=== PATIENT | female | born 1950 | race African-American/Black ===

== ENCOUNTER 2016-05-22 06:38 | Outpatient (CLI) | payer MEDICARE, OTHER ==
[2016-05-22 07:30] LABS: #Basophils 0.1 thou/uL (0.0-0.2); #Eosinphils 0.3 thou/uL (0.0-0.7); #Lymphocytes 1.3 thou/uL (1.20-3.40); #Monocytes 0.6 thou/uL (0.11-0.59); #Neutrophils 1.9 thou/uL (1.40-6.50); %Basophils 2.8 % (0.0-1.0); %Eosinophils 6.3 % (0.0-10.0); %Lymphocytes 31.7 % (21.0-51.0); %Monocytes 13.4 % (0.0-10.0); %Neutrophils 45.9 % (42.0-75.0); Hemoglobin 10.7 g/dL (12.0-16.0); Mean Corpuscular HGB CONC 32.4 g/dL (32.0-36.0); Mean Corpuscular Hemoglobin 28.4 pg (27.0-31.0); Mean Corpuscular Volume 87.9 fl (81.0-99.0); Mean Platelet Volume 7.8 fL (7.4-10.4); Platelet Count 220 thou/uL (130-400); RBC Distribution Width 14.3 % (11.5-14.5); Red Blood Cell (RBC) Count 3.78 mill/uL (4.20-5.40); White Blood Cell (WBC) Count 4.2 thou/uL (4.8-10.8)
[2016-05-22 07:34] LABS: Hemoglobin A1c 7.3 % (4.0-6.0)
[2016-05-22 07:44] LABS: ALT (SGPT) 26 U/L (0-55); AST (SGOT) 36 U/L (5-34); Albumin 3.9 g/dL (3.4-4.8); Alkaline Phosphatase 129 U/L (40-150); Anion Gap 14 mmol/L (10-20); BUN (Urea Nitrogen) 18 mg/dL (9.8-20.1); Bilirubin, Total Less than 0.3 mg/dL (0.2-1.2); Calc. Creatinine Clearance 0 mL/min (70-130); Calcium 8.9 mg/dL (7.8-10.44); Carbon Dioxide 26 mmol/L (23-31); Cardiac Risk 3.8 (Less than 4.5); Chloride 102 mmol/L (98-107); Cholesterol 156 mg/dL (< 200 Desired); Estimated GFR-MDRD 84; Globulin 3.4 g/dL (2.4-3.5); Glucose 74 mg/dL (80-115); HDL Cholesterol 41 mg/dL (>60 Neg Risk); LDL Cholesterol, Calculated 79 mg/dL; Potassium 3.9 mmol/L (3.5-5.1); Protein, Total 7.3 g/dL (5.8-8.1); Sodium 138 mmol/L (136-145); Triglycerides 180 mg/dL (Less than 150)
[2016-05-22 18:13] LABS: Iron 25 ug/dL (50-170); Iron Binding Capacity, Total 295 mcg/dL (265-497)
[2016-05-22 18:39] LABS: Creatinine, Urine 268.51 mg/dL (47-110); Microalbumin Urine 2.3 mg/dL (0.5-50.0); Microalbumin/Creat Ratio 8.6 mg/g (Less than 30)
== END 2016-05-22 06:39 | disposition home or self-care (01) ==
LOC: MADLAB 06:38
PROVIDERS: ATTEND Family Medicine
DX: E78.2 Mixed hyperlipidemia (principal); D50.9 Iron deficiency anemia, unspecified; E11.9 Type 2 diabetes mellitus without complications
CPT/HCPCS: 36415; 80053; 80061; 82043; 82728; 83036; 83540; 83550; 85025

== ENCOUNTER 2016-09-24 06:49 | Outpatient (CLI) | payer MEDICARE ==
[2016-09-24 07:45] LABS: Hemoglobin A1c 7.5 % (4.0-6.0)
[2016-09-24 08:26] LABS: Hemoglobin 11.3 g/dL (12.0-16.0); Lymphocytes 42 % (21-51); MDiff Complete? YES; Manual Diff?? YES; Mean Corpuscular HGB CONC 30.7 g/dL (32.0-36.0); Mean Corpuscular Volume 91.5 fL (81.0-99.0); Mean Platelet Volume 9.1 fL (7.4-10.4); Monocytes 10 % (0-10); Neutrophil 42 % (42-75); Platelet Count 190 thou/uL (130-400); RBC Distribution Width 13.6 % (11.5-14.5); Red Blood Cell (RBC) Count 4.04 mill/uL (4.20-5.40); White Blood Cell (WBC) Count 4.6 thou/uL (4.8-10.8)
[2016-09-24 08:27] LABS: Anisocytosis SLIGHT = 6-15 cells (100X) (0-5/hpf); Eosinophils 3 % (0-10)
[2016-09-24 08:28] LABS: PLT Morphology Comment Appears Adequate
[2016-09-24 08:30] LABS: ALT (SGPT) 32 U/L (8-55); AST (SGOT) 34 U/L (5-34); Albumin 3.8 g/dL (3.4-4.8); Alkaline Phosphatase 128 U/L (40-150); Anion Gap 14 mmol/L (10-20); BUN (Urea Nitrogen) 12 mg/dL (9.8-20.1); Bilirubin, Total Less than 0.3 mg/dL (0.2-1.2); Calc. Creatinine Clearance 0 mL/min (70-130); Calcium 8.8 mg/dL (7.8-10.44); Carbon Dioxide 26 mmol/L (23-31); Chloride 100 mmol/L (98-107); Estimated GFR-MDRD 90; Globulin 4.7 g/dL (2.4-3.5); Glucose 114 mg/dL (80-115); Potassium 4.1 mmol/L (3.5-5.1); Protein, Total 8.5 g/dL (6.0-8.3); Sodium 136 mmol/L (136-145)
[2016-09-24 16:51] LABS: Iron 35 ug/dL (50-170)
== END 2016-09-24 06:50 | disposition home or self-care (01) ==
LOC: MADLAB 06:49
PROVIDERS: ATTEND Family Medicine
DX: E11.9 Type 2 diabetes mellitus without complications (principal); D72.819 Decreased white blood cell count, unspecified; D50.9 Iron deficiency anemia, unspecified
CPT/HCPCS: 36415; 80053; 82728; 83036; 83540; 85025

== ENCOUNTER 2016-12-17 07:10 | Outpatient (CLI) | payer MEDICARE ==
[2016-12-17 11:40] LABS: Creatinine, Urine 116.37 mg/dL (47-110); Microalbumin Urine 1.4 mg/dL (0.5-50.0)
[2016-12-18 16:05] LABS: ALT (SGPT) 22 U/L (8-55); AST (SGOT) 26 U/L (5-34); Albumin 3.9 g/dL (3.4-4.8); Alkaline Phosphatase 163 U/L (40-150); Anion Gap 12 mmol/L (10-20); BUN (Urea Nitrogen) 18 mg/dL (9.8-20.1); Bilirubin, Total 0.2 mg/dL (0.2-1.2); Calc. Creatinine Clearance 0 mL/min (70-130); Calcium 9.1 mg/dL (7.8-10.44); Carbon Dioxide 30 mmol/L (23-31); Cardiac Risk 3.7 (Less than 4.5); Chloride 101 mmol/L (98-107); Cholesterol 191 mg/dl (< 200 Desired); Estimated GFR-MDRD 84; Globulin 3.6 g/dL (2.4-3.5); Glucose 132 mg/dL (80-115); HDL Cholesterol 51 mg/dL (>60 Neg Risk); LDL Cholesterol, Calculated 112 mg/dL; Potassium 4.2 mmol/L (3.5-5.1); Protein, Total 7.5 g/dL (6.0-8.3); Sodium 139 mmol/L (136-145); Triglycerides 139 mg/dL (Less than 150)
[2016-12-18 16:20] LABS: Hemoglobin A1c 8.3 % (4.0-6.0)
[2016-12-18 16:23] LABS: Free T4 (Free Thyroxine) 0.75 ng/dL (0.70-1.48); Thyroid Stimulating Hormone 2.7282 uIU/mL (0.35-4.94)
== END 2016-12-17 07:11 | disposition home or self-care (01) ==
LOC: MADLABBHPM 07:10
PROVIDERS: ATTEND Family Medicine
DX: E11.9 Type 2 diabetes mellitus without complications (principal); E78.2 Mixed hyperlipidemia
CPT/HCPCS: 36415; 80053; 80061; 82043; 83036; 84439; 84443

== ENCOUNTER 2017-09-22 05:33 | Emergency (ER) | payer MEDICARE | END 2017-09-22 06:28 | disposition home or self-care (01) | LOC: MADERS 05:33 | DX: J20.9 Acute bronchitis, unspecified (principal); D86.9 Sarcoidosis, unspecified; E11.9 Type 2 diabetes mellitus without complications; E78.5 Hyperlipidemia, unspecified; I10 Essential (primary) hypertension; G43.909 Migraine, unspecified, not intractable, without status migrainosus; Z79.899 Other long term (current) drug therapy | CPT/HCPCS: 99282 ==

== ENCOUNTER 2018-07-21 16:05 | Outpatient (CLI) | payer MEDICARE ==
--- NOTE | 2018-07-21 16:35 | RAD ---
EXAM: Chest Two Views 07/21/2018 4:31 PM HISTORY: Acute bronchitis with exacerbation of COPD COMPARISON: Prior exam dated February 20, 2010 FINDINGS: Heart: There is stable moderate cardiomegaly Pulmonary vessels: There is mild pulmonary vascular congestion. Costophrenic angles: Clear. Lungs: There are perihilar interstitial prominence. There is suspected stable scarring within the rig ht suprahilar region. Pneumothorax: None. Osseous structures:There is scattered degenerative and osteoarthritic change present. Additional findings: None. IMPRESSION: Perihilar interstitial prominence can be seen with atypical infectious processes. Recommend radiograp hic follow-up. No airspace consolidation is evident to suggest bacterial pneumonia. There is stable scarring within the right upper lobe. There is stable moderate cardiomegaly with mild pulmonary vascular congestion.
== END 2018-07-21 16:06 | disposition home or self-care (01) ==
LOC: MADRAD 16:05
PROVIDERS: ATTEND Family Medicine
DX: J44.0 Chronic obstructive pulmonary disease with (acute) lower respiratory infection (principal); J44.1 Chronic obstructive pulmonary disease with (acute) exacerbation; J20.9 Acute bronchitis, unspecified; I51.7 Cardiomegaly; R09.89 Other specified symptoms and signs involving the circulatory and respiratory systems
CPT/HCPCS: 71046

== ENCOUNTER 2019-01-01 05:44 | Emergency (ER) | payer MEDICARE ==
[2019-01-01] MEDS ORDERED: Ketorolac Tromethamine 60 MG/2 ML VIAL ONE (07:01)
--- NOTE | 2019-01-01 07:39 | RAD ---
EXAM: 3 views of the right shoulder HISTORY: Chronic shoulder pain COMPARISON: None FINDINGS: There is no evidence of acute fracture or dislocation. No degenerative changes are present. No soft tissue swelling is seen. The visualized thorax is unremarkable. IMPRESSION: No evidence of acute osseous abnormality.
== END 2019-01-01 07:15 | disposition home or self-care (01) ==
LOC: MADERS 05:44
DX: S29.012A Strain of muscle and tendon of back wall of thorax, initial encounter (principal); S29.011A Strain of muscle and tendon of front wall of thorax, initial encounter; E11.9 Type 2 diabetes mellitus without complications; E78.5 Hyperlipidemia, unspecified; E78.00 Pure hypercholesterolemia, unspecified; I10 Essential (primary) hypertension; G43.909 Migraine, unspecified, not intractable, without status migrainosus; Z79.899 Other long term (current) drug therapy; Z79.84 Long term (current) use of oral hypoglycemic drugs; Z79.52 Long term (current) use of systemic steroids; X50.9XXA Other and unspecified overexertion or strenuous movements or postures, initial encounter
CPT/HCPCS: 93005; 96372; J1885

== ENCOUNTER 2020-04-06 19:28 | Emergency (ER) | payer MEDICARE ==
[2020-04-08 00:14] LABS: SARS-CoV-2 PCR by NAA Not Detected (NotDetected)
== END 2020-04-06 20:15 | disposition home or self-care (01) ==
LOC: MADERS 19:28
DX: Z20.822 Contact with and (suspected) exposure to COVID-19 (principal); J44.9 Chronic obstructive pulmonary disease, unspecified; E11.9 Type 2 diabetes mellitus without complications; E78.5 Hyperlipidemia, unspecified; I10 Essential (primary) hypertension; E78.00 Pure hypercholesterolemia, unspecified; G43.909 Migraine, unspecified, not intractable, without status migrainosus
CPT/HCPCS: 87635; 99281; U0003; U0005

== ENCOUNTER 2021-12-07 10:57 | Outpatient (CLI) | payer MEDICARE ==
[2021-12-07 12:17] LABS: ALT (SGPT) 31 U/L (8-55); AST (SGOT) 32 U/L (5-34); Albumin 3.9 g/dL (3.4-4.8); Alkaline Phosphatase 136 U/L (40-110); Anion Gap 14 mmol/L (10-20); BUN (Urea Nitrogen) 13 mg/dL (9.8-20.1); Bilirubin, Total 0.3 mg/dL (0.2-1.2); Calc. Creatinine Clearance 0 mL/min (70-130); Calcium 9.4 mg/dL (7.8-10.44); Carbon Dioxide 32 mmol/L (23-31); Cardiac Risk 3.1 (Less than 4.5); Chloride 101 mmol/L (98-107); Cholesterol 129 mg/dl (< 200 Desired); Estimated GFR 78; Globulin 3.5 g/dL (2.4-3.5); Glucose 62 mg/dL (83-110); HDL Cholesterol 41 mg/dL (>60 Neg Risk); LDL Cholesterol, Calculated 58 mg/dL; Potassium 4.5 mmol/L (3.5-5.1); Protein, Total 7.4 g/dL (5.8-8.1); Sodium 142 mmol/L (136-145); Triglycerides 152 mg/dL (Less than 150)
== END 2021-12-07 10:58 | disposition home or self-care (01) ==
LOC: MADLABBHPM 10:57 → MADLAB 10:58
PROVIDERS: ATTEND Family Medicine
DX: E78.2 Mixed hyperlipidemia (principal); E11.65 Type 2 diabetes mellitus with hyperglycemia
CPT/HCPCS: 80053; 80061

== ENCOUNTER 2023-09-05 11:29 | Outpatient (CLI) | payer MEDICARE, BC | END 2023-09-05 11:30 | disposition home or self-care (01) | LOC: MADLAB 11:29 → MADRAD 11:30 | PROVIDERS: ATTEND Family Medicine | DX: M25.511 Pain in right shoulder (principal); G89.29 Other chronic pain; M19.011 Primary osteoarthritis, right shoulder ==

== ENCOUNTER 2023-09-16 11:39 | Outpatient (CLI) | payer MEDICARE, BC | END 2023-09-16 11:40 | disposition home or self-care (01) | LOC: MADLAB 11:39 | PROVIDERS: ATTEND Family Medicine | DX: M25.552 Pain in left hip (principal) ==

== ENCOUNTER 2024-12-28 08:24 | Outpatient (CLI) | payer MEDICARE ==
[2024-12-28 09:17] LABS: ALT (SGPT) 30 U/L (Less than 34); AST (SGOT) 28 U/L (11-34); Albumin 3.5 g/dL (3.1-4.5); Alkaline Phosphatase 131 U/L (40-110); Anion Gap 16 mmol/L (10-20); BUN (Urea Nitrogen) 16 mg/dL (9.8-20.1); Bilirubin, Total 0.3 mg/dL (0.3-1.2); Calc. Creatinine Clearance 0 mL/min (70-130); Calcium 9.1 mg/dL (7.8-10.44); Carbon Dioxide 28 mmol/L (23-31); Cardiac Risk 2.7 (Less than 4.5); Chloride 101 mmol/L (98-107); Cholesterol 122 mg/dl (< 200 Desired); Globulin 4.1 g/dL (2.4-3.5); Glucose 61 mg/dL (83-110); HDL Cholesterol 45 mg/dL (>60 Neg Risk); LDL Cholesterol, Calculated 63 mg/dL; Potassium 4.0 mmol/L (3.5-5.1); Sodium 141 mmol/L (136-145); Triglycerides 71 mg/dL (Less than 150)
[2024-12-28 16:59] LABS: Hep C IgG Ab NONREACTIVE S/CO (NonReactive); Hep C Index 0.16 S/CO (0-0.79); Vitamin D, 25 Hydroxy 39.7 ng/ml (> 30.0)
== END 2024-12-28 08:25 | disposition home or self-care (01) ==
LOC: MADLAB 08:24
PROVIDERS: ATTEND Family Medicine
DX: Z11.59 Encounter for screening for other viral diseases (principal); E11.65 Type 2 diabetes mellitus with hyperglycemia; E78.2 Mixed hyperlipidemia; Z78.0 Asymptomatic menopausal state; I10 Essential (primary) hypertension
CPT/HCPCS: 36415; 80053; 80061; 82043; 82306; 83036; 86803

== ENCOUNTER 2025-03-08 07:36 | Outpatient (CLI) | payer MEDICARE ==
[2025-03-08 08:24] LABS: Hematocrit 36.3 % (36.0-47.0); Hemoglobin 11.1 g/dL (12.0-16.0); Mean Corpuscular Hemoglobin 28.0 pg (27.0-31.0); Mean Corpuscular Volume 91.5 fl (78.0-98.0); Platelet Count 218 10x3/uL (130-400); Red Blood Cell (RBC) Count 3.97 mill/uL (4.20-5.40); White Blood Cell (WBC) Count 5.2 10x3/uL (4.8-10.8)
[2025-03-08 08:31] LABS: MDiff Complete? YES; Manual Diff?? YES
[2025-03-08 08:32] LABS: Platelet Adequacy Comment Appears Adequate
[2025-03-08 12:05] LABS: Iron 59 ug/dL (50-170); Iron Binding Capacity, Total 218 mcg/dL (265-497)
== END 2025-03-08 07:37 | disposition home or self-care (01) ==
LOC: MADLAB 07:36
PROVIDERS: ATTEND Internal Medicine Hematology & Oncology
DX: K74.69 Other cirrhosis of liver (principal); C21.1 Malignant neoplasm of anal canal; D50.0 Iron deficiency anemia secondary to blood loss (chronic)
CPT/HCPCS: 36415; 82728; 83540; 83550; 85025